=== PATIENT | male | born 1975 ===

== ENCOUNTER 2018-03-29 08:52 | Emergency (ER) | payer OTHER ==
[~2018-03-29] VITALS: Ht 167.6 cm; Wt 105.2 kg
== END 2018-03-29 14:23 | disposition home or self-care (01) ==
LOC: ER 08:52
DX: K57.32 Diverticulitis of large intestine without perforation or abscess without bleeding (principal)

== ENCOUNTER 2024-12-11 05:30 | Day surgery (SDC) | payer OTHER ==
[2024-12-04 10:04] VITALS: BP 104/87
[2024-12-04 10:10] LABS: URINE APPEARANCE Clear; URINE BILIRRUBIN Negative (NEGATIVE); URINE BLOOD Negative; URINE COLOR Yellow; URINE GLUCOSE Negative (NEGATIVE); URINE KETONE Trace (NEGATIVE); URINE LEUKOCYTE Negative; URINE NITRATE Negative; URINE PROTEIN Negative (NEGATIVE); URINE UROBILINOGEN 1.0 E.U./dl
[2024-12-04 10:13] LABS: URINE WBC 7.5 uL (0.0-23.2)
[2024-12-04 10:16] LABS: URINE BACTERIA 1.1 uL (0.0-1933); URINE CAST 0.00 uL (0.0-1.40); URINE EPITHELIAL CELLS 1.0 uL (0.0-38.8); URINE RBC 1.3 uL (0.0-20.8)
[2024-12-04 10:41] LABS: INR 0.98
[2024-12-04 10:42] LABS: BASO % 0.6 % (0.1-1.2); EOS # 0.26 (0.04-0.54); EOS % 4.1 % (0.7-7.0); LYMPH # 1.65 (1.18-3.74); LYMPH % 26.3 % (19.3-53.1); MEAN PLATELET VOLUME 9.30 fl (9.4-12.4); MONO # 0.39 (0.24-0.82); MONO % 6.2 % (4.7-12.5); NEUT # 3.92 (1.56-6.13); NEUT % 62.6 % (34.0-71.1); RED CELL DISTRIBUTION WIDTH 13.2 % (11.6-14.4)
[2024-12-04 10:49] LABS: BUN CREA RATIO 23.0 (7.0-25.0); CREATININE SERUM 0.73 mg/dL (0.70-1.30); GFR 113.27; GLUCOSE FASTING 87.0 mg/dL (65-100); OSMOLALITY SERUM 290.0 MOSM/KG (275-295)
[~2024-12-11] VITALS: Ht 167.6 cm; Wt 85.7 kg
[2024-12-11] MEDS ORDERED: BUPIVACAINE HCL 30 ML VIAL IV ONE (07:15)
[2024-12-11] MEDS ORDERED: METRONIDAZOLE/SODIUM CHLORIDE 5 MG/ML ML IV ONE (07:15)
[2024-12-11] MEDS ORDERED: CEFTRIAXONE SODIUM 1,000 MG VIAL IV ONE (07:15)
[2024-12-11] MEDS ORDERED: ENOXAPARIN SODIUM 40 MG/0.4 ML SYRINGE SUBCUTANEO ONE (07:15)
[2024-12-11] MEDS ORDERED: SUGAMMADEX SODIUM 200 MG/2 ML VIAL IV ONE (09:00)
[2024-12-11] MEDS ORDERED: hydrALAZINE HCL 20 MG VIAL IV ONE (09:00)
[2024-12-11] MEDS ORDERED: MORPHINE SULFATE 4 MG/ML VIAL IV ONE ×2 (10:15→10:45)
[2024-12-11] MEDS ORDERED: PERCOCET 5-3251 EACH PO (10:20)
[2024-12-11] MEDS ORDERED: POLY119PG PO (10:21)
[2024-12-11] MEDS ORDERED: NEURONTIN300 MG PO (10:21)
[2024-12-11] MEDS ORDERED: CELEBREX200MG PO (10:21)
== END 2024-12-11 12:00 | disposition home or self-care (01) ==
LOC: CIR.AMB 05:30
PROVIDERS: ATTEND Surgery
DX: K42.0 Umbilical hernia with obstruction, without gangrene (principal)